=== PATIENT | male | born 1955 | race Caucasian/White ===

== ENCOUNTER 2016-09-27 09:25 | Outpatient (CLI) | payer OTHER ==
[2016-09-27 10:48] LABS: ALT (SGPT) 185 U/L (0-55); AST (SGOT) 80 U/L (5-34); Alkaline Phosphatase 58 U/L (40-150); Bilirubin, Direct 0.2 mg/dL (0.1-0.3); Bilirubin, Total 0.4 mg/dL (0.2-1.2); LDL Cholesterol, Calculated 73 mg/dL; Protein, Total 6.5 g/dL (6.0-8.3)
== END 2016-09-27 09:26 | disposition home or self-care (01) ==
LOC: HPCALD 09:25
PROVIDERS: ATTEND Family Medicine
DX: E78.1 Pure hyperglyceridemia (principal)
CPT/HCPCS: 36415; 80061; 80076

== ENCOUNTER 2017-01-26 15:14 | Outpatient (CLI) | payer OTHER ==
--- NOTE | 2017-01-26 21:51 | RAD ---
LUMBAR SPINE THREE VIEWS 01/26/17 No fracture was seen. There is probably a slight amount of disc space narrowing at all levels from L 2 and below, but the findings are not dramatic, and are in part caused by lumbar scoliosis convexed left. Facet arthritis is probably present in the lower lumbar areas, though it is not dramatic eithe r. The SI joints are symmetrical. The aorta is densely calcified. IMPRESSION: 1. Mild scoliosis. 2. Mild degenerative changes. POS: HOME
== END 2017-01-26 15:15 | disposition home or self-care (01) ==
LOC: BURRAD 15:14
PROVIDERS: ATTEND Family Medicine
DX: M54.5 Low back pain (principal); M47.816 Spondylosis without myelopathy or radiculopathy, lumbar region
CPT/HCPCS: 72100

== ENCOUNTER 2019-08-08 04:56 | Emergency (ER) | payer OTHER ==
[2019-08-08 05:20] LABS: #Basophils 0.1 thou/uL (0.0-0.2); #Eosinphils 1.6 thou/uL (0.0-0.7); #Lymphocytes 2.4 thou/uL (1.20-3.40); #Monocytes 0.9 thou/uL (0.11-0.59); #Neutrophils 6.7 thou/uL (1.40-6.50); %Eosinophils 13.9 % (0.0-10.0); %Lymphocytes 20.4 % (21.0-51.0); %Monocytes 7.6 % (0.0-10.0); %Neutrophils 57.2 % (42.0-75.0); Hemoglobin 12.6 g/dL (14.0-18.0); Mean Corpuscular HGB CONC 33.2 g/dL (32.0-36.0); Mean Corpuscular Hemoglobin 30.4 pg (27.0-31.0); Mean Corpuscular Volume 91.8 fL (78.0-98.0); Mean Platelet Volume 7.8 fL (7.4-10.4); Platelet Count 210 thou/uL (130-400); RBC Distribution Width 12.6 % (11.5-14.5); Red Blood Cell (RBC) Count 4.14 mill/uL (4.70-6.10); White Blood Cell (WBC) Count 11.8 thou/uL (4.8-10.8)
[2019-08-08] MEDS ORDERED: Aspirin Chewable 81 MG TAB ONE (05:20)
[2019-08-08 05:36] LABS: ALT (SGPT) 14 U/L (8-55); AST (SGOT) 24 U/L (5-34); Albumin 3.8 g/dL (3.4-4.8); Alkaline Phosphatase 76 U/L (40-110); Anion Gap 15 mmol/L (10-20); BUN (Urea Nitrogen) 12 mg/dL (8.4-25.7); Bilirubin, Total 0.6 mg/dL (0.2-1.2); Calc. Creatinine Clearance 0 mL/min (70-130); Carbon Dioxide 24 mmol/L (23-31); Chloride 107 mmol/L (98-107); Estimated GFR-MDRD Greater than 90; Globulin 2.9 g/dL (2.4-3.5); Glucose 104 mg/dL (80-115); Potassium 4.1 mmol/L (3.5-5.1); Protein, Total 6.7 g/dL (5.8-8.1); Sodium 142 mmol/L (136-145)
[2019-08-08] MEDS ORDERED: Morphine 4 MG/ML VIAL ONE (05:37)
[2019-08-08 05:54] LABS: CKMB 3.7 ng/mL (0-6.6)
--- NOTE | 2019-08-08 07:45 | RAD ---
PORTABLE CHEST: DATE: 08/08/2019. FINDINGS: The heart is upper normal in size compared to the 07/15/2014 study. There is calcification in the ao rtic arch as usual. No vascular congestion, vicki edema, or pleural effusion was seen. There is a s uggestion of some plate-like atelectasis in the right lung. IMPRESSION: Minimal atelectasis, but no acute findings of concern otherwise. POS: HOME
--- NOTE | 2019-08-08 07:51 | CT ---
PRELIMINARY REPORT/[facility]/EMERGENCY AFTER HOURS PROCEDURE: PROCEDURE INFORMATION: Exam: CT Angiography Chest With Contrast Exam date and time: 08/08/2019 5:51 AM Age: 64 years old Clinical history: Other: Chest pain all over; Prior surgery; Surgery date: <1 month; Patient HX: HX m itral valve SX three weeks ago TECHNIQUE: Imaging protocol: Computed tomographic angiography of the chest with intravenous contrast. 3D rendering: MIP reconstructed images were created and reviewed. COMPARISON: No relevant prior studies available. FINDINGS: Pulmonary arteries: There is no evidence of peripheral filling defects within the pulmonary arterial circulation to suggest pulmonary embolism. Aorta: Unremarkable. No aortic aneurysm. No aortic dissection. Thyroid: The visualized thyroid gland is unremarkable. Lungs: There is interstitial edema within the dependent portions of the lung bilaterally. There is a 11 mm peripheral RIGHT middle lobe lung nodule versus scarring. Pleural space: Unremarkable. No pneumothorax. No pleural effusion. Heart: Unremarkable. No cardiomegaly. No pericardial effusion. Mediastinum: The trachea is normal. Lymph nodes: Unremarkable. No enlarged lymph nodes. Bones/joints: Unremarkable. No acute fracture. Soft tissues: Unremarkable. IMPRESSION: 1. There is no CT evidence of acute pulmonary embolism. 2. There is a 11 mm peripheral RIGHT middle lobe lung nodule versus scarring. For both low risk and h igh risk patients, consider CT at 3 months, PET/CT or biopsy. (Shonda et al., Fleischner Society, 2017). Thank you for allowing us to participate in the care of your patient. Dictated and Authenticated by: Kenton Murillo MD 08/08/2019 7:00 AM Central Time ([place] & [place]) FINAL REPORT CT ANGIO OF THE CHEST: DATE: 08/08/2019. FINDINGS: Spiral CT of the chest was done after a bolus of IV contrast. Axial slices were acquired followed by MIP reconstructions in various planes. There is moderate opacification of the pulmonary arteries. There were no filling defects to suggest emboli in the larger and medium-sized branches. Small emboli in some of the more distal branches glendy ht be missed on this study. There is no sign of pericardial effusion. Coronary artery calcification s are noted. There may be a trace of pleural fluid on the right, but it is insignificant in amount. There is some generalized dependent atelectasis and/or edema seen in the lungs, particularly posterio rly near the diaphragm. A small 1.2 cm nodular density in the right lateral chest on scan 68 was not present on a 06/17/2019 study. It may be related to atelectasis or scarring. The heart seems slight ly larger than before. A micro valve replacement is noted. Scans into the upper abdomen showed no a cute changes in the area scanned. IMPRESSION: 1. No evidence of pulmonary embolism. 2. Coronary arterial sclerosis. 3. Atelectatic changes throughout the lungs. 4. Small nodular density in the right lateral chest not present on the 06/17 scan. Probably related to atelectasis or scarring given its appearance over a short period of time. Depending on the clini tatyana history, a follow up scan in 3-6 months might be contemplated. REPORT IN AGREEMENT WITH PRELIMINARY READING BY YAEL. POS: HOME
[2019-08-08] MEDS ORDERED: Iopamidol 370 76% 100 ML VIAL ONE (12:49)
== END 2019-08-08 08:15 | disposition short-term general hospital (02) ==
LOC: BURERS 04:56
DX: R07.2 Precordial pain (principal); I11.0 Hypertensive heart disease with heart failure; I50.9 Heart failure, unspecified; E78.5 Hyperlipidemia, unspecified; F17.200 Nicotine dependence, unspecified, uncomplicated; Z79.899 Other long term (current) drug therapy; Z79.01 Long term (current) use of anticoagulants; Z79.82 Long term (current) use of aspirin
CPT/HCPCS: 71045; 71275; 80053; 82553; 83880; 84484; 85025; 93005; 96374; J2270; Q9967